=== PATIENT | male | born 1980 | race Caucasian/White ===

== ENCOUNTER 2016-07-20 17:29 | Emergency (ER) | payer MEDICAID ==
[2016-07-20 18:04] VITALS: BP 134/72; PULSE 90; RESP 16; TEMP 98.8; O2SAT 97
--- NOTE | 2016-07-20 18:33 | UCPHY ---
H & P Time Seen by Provider: 07/20/16 18:05 Patient Type: New HPI/ROS: CHIEF COMPLAINT: Sore throat, runny nose HPI: The patient is a 36-year-old male with no significant past medical history. He complains of 2-3 days of clear rhinorrhea as well as a mild sore throat. He denies fever. He presents to the urgent care because his son tested positive for strep throat today and he wanted to make sure he did not have this. He denies abdominal pain or difficulty swallowing. REVIEW OF SYSTEMS: Aside from elements discussed in the HPI, a comprehensive 10-point review of systems was reviewed and is negative. PMH: None significant. SOCIAL HISTORY: Denies drug or alcohol abuse. FAMILY HISTORY: Reviewed, noncontributory PHYSICAL EXAM: General:Patient is alert, in no acute distress. He is well appearing. ENT:Eyes are normal to inspection. ENT inspection normal. Mucous membranes are moist. Very mild erythema without exudate of posterior throat. Normal voice. Neck: Normal inspection. Full range of motion. Respiratory:No respiratory distress. Breath sounds normal bilaterally. Cardiovascular: Regular rate and rhythm. Strong peripheral pulses. Normal cap refill. Neuro: Oriented x3. Normal motor function. Normal sensory function. Smoking Status: Heavy smoker Constitutional: Initial Vital Signs Temperature (C) 37.1 C 07/20/16 18:01 Heart Rate 90 07/20/16 18:01 Respiratory Rate 16 07/20/16 18:01 Blood Pressure 134/72 H 07/20/16 18:01 O2 Sat (%) 97 07/20/16 18:01 O2 Delivery Mode Room Air Allergies/Adverse Reactions: No Known Allergies Allergy (Verified 07/20/16 18:03) Home Medications: Medication Instructions Recorded NK [No Known Home Meds] 07/20/16 Medical Decision Making Differential Diagnosis: This is a young healthy male who presents with symptoms of an upper respiratory infection and possible early mild sore throat. Strep test is negative. He declines flu swab. He is appropriate for outpatient management and does not require antibiotics unless his throat culture comes back positive. - Data Points Laboratory Results: 07/20/16 07/20/16 Unknown 18:00 Group A Strep Screen NEGATIVE (NEGATIVE) Group A Strep DNA Pending Departure - Departure Disposition: Home, Routine, Self-Care Clinical Impression: Pharyngitis, Upper respiratory infection Condition: Good Instructions: Upper Respiratory Infection (ED) Additional Instructions: Your rapid strep test is negative. Follow-up with your primary doctor within 72 hours. Return to the Emergency Department for high fever, difficulty swallowing , difficulty tolerating liquids, neck pain or stiffness, shortness of breath or other concerns. Use Tylenol and/or ibuprofen as directed for pain. Drink plenty of fluids. We will call you with the number provided showed your strep test become positive. Referrals: PARAG CASTORENA,. [Primary Care Provider] - As per Instructions - PQRS PQRS Measurement: 134: Depression screening and followup, PRIME MD-PHQ2 (12 years and older) Over the last 2 weeks, how often have you been bothered by any of the following problems? 1. Feeling down, depressed, or hopeless? 2. Little interest or pleasure in doing things? Patient answered no to both 1 and 2 130: Documentation of medications. Reviewed all patient medications, doses, route and frequency. 226: Do you smoke? No. 51: 18 years old and older with diagnosis of COPD, spirometry performance. Spirometry not performed; equipment not available. Patient has no history of COPD 52: 18 years old and older with COPD and symptoms of COPD or FEV1<60% predicted prescribed a B Agonist. Spirometry not performed; equipment not available.
== END 2016-07-20 18:38 | disposition home or self-care (01) ==
LOC: CED 17:29
DX: J02.9 Acute pharyngitis, unspecified (principal); J06.9 Acute upper respiratory infection, unspecified; F17.200 Nicotine dependence, unspecified, uncomplicated
CPT/HCPCS: 87880-PO; 99204-PO; G0463-PO

== ENCOUNTER 2017-04-01 09:25 | Emergency (ER) | payer MEDICAID ==
[2017-04-01 09:39] VITALS: BP 117/72; PULSE 73; RESP 18; TEMP 97.9; O2SAT 95
--- NOTE | 2017-04-01 09:44 | EDPHY ---
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 The patient states his daughters have both been sick with pinkeye. His recently was diagnosed with a sinus infection. The patient describes bilateral ear pressure and pain. There has been no discharge. Patient also complains of frontal sinus congestion and pressure. He feels as though his eyes her scratchy bilaterally. He has not noticed any eye discharge. No headache. No fever or chills. No nausea or vomiting. REVIEW OF SYSTEMS: My complete review of systems is negative except as mentioned in the HPI. Past Medical/Surgical History: Includes Meniere's disease, hearing loss Smoking Status: Former smoker Physical Exam: Vitals noted GENERAL: Well-appearing, in no acute distress, alert. HEENT: Eyes normal to inspection, no injection, normal pharynx, no signs of dehydration. The patient has bilateral hearing aids in place. These are removed. The patient has bilateral erythematous tympanic membranes. They appear contracted. No perforation NECK: No thyromegaly, no lymphadenopathy, supple. RESPIRATORY: Clear to auscultation bilaterally, no rales, rhonchi or wheezing. CVS: Regular rate and rhythm, no rubs, murmurs, or gallops. ABDOMEN: Soft, nontender, nondistended, no organomegaly. BACK: Normal to inspection, no CVA tenderness. SKIN: Normal color, no rash, warm, dry. No pallor. EXTREMITIES: No pedal edema, no calf tenderness, no Homans sign or cords, no joint swelling. NEURO/PSYCH: Alert and oriented, normal mood and affect, normal motor sensory exam. Constitutional: Initial Vital Signs Temperature (C) 36.6 C 04/01/17 09:36 Heart Rate 73 04/01/17 09:36 Respiratory Rate 18 04/01/17 09:36 Blood Pressure 117/72 04/01/17 09:36 O2 Sat (%) 95 04/01/17 09:36 O2 Delivery Mode Room Air Allergies/Adverse Reactions: No Known Allergies Allergy (Verified 04/01/17 09:33) Home Medications: Medication Instructions Recorded Amoxicillin/Clavulanate Pot 875 mg PO BID 10 Days tab 04/01/17 [Augmentin 875 mg tab] Medical Decision Making ED Course/Re-evaluation: In the emergency department I discussed possible etiologies with the patient. I answered all his questions. The patient will be given a prescription of Augmentin for his otitis media. His eye exam appeared normal. I do not feel he needs bacterial eye drops. He is given warnings prior to leaving. He will return with worsening symptoms. Differential Diagnosis: My differential includes but is not limited to otitis media, otitis externa, sinusitis, conjunctivitis, viral illness, bacteremia, sepsis Departure - Departure Disposition: Home, Routine, Self-Care Clinical Impression: Acute otitis media Qualifiers: Otitis media type: other nonsuppurative Laterality: bilateral Recurrence: not specified as recurrent Qualified Code(s): H65.193 - Other acute nonsuppurative otitis media, bilateral Condition: Good Instructions: Otitis Media (ED) Additional Instructions: Take your entire course of antibiotics. Return with worsening symptoms. Referrals: PARAG CASTORENA,. [Primary Care Provider] - 2-3 days, if not improved Prescriptions: Amoxicillin/Clavulanate Pot [Augmentin 875 mg tab] 875 mg PO BID 10 Days tab
== END 2017-04-01 09:49 | disposition home or self-care (01) ==
LOC: CED 09:25
DX: H65.193 Other acute nonsuppurative otitis media, bilateral (principal); Z87.891 Personal history of nicotine dependence